=== PATIENT | male | born 1945 | race Caucasian/White ===

== ENCOUNTER → 2016-06-19 | Day surgery (SDC) | payer OTHER, MEDICARE ==
[2016-06-14 15:31] VITALS: Ht 182.9 cm; Wt 68.2 kg
--- NOTE | 2016-06-16 16:21 | HISTORY & PHYSICAL EXAMINATION ---
DATE OF ADMISSION: 06/19/2016 CHIEF COMPLAINT: Decreased vision, right eye. HISTORY OF PRESENT ILLNESS: Amrik has had decreasing vision in his right eye and is scheduled for cataract surgery to help with this condition. PAST MEDICAL HISTORY: Gastroesophageal reflux disease, benign prostatic hypertrophy. PAST SURGICAL HISTORY: Left cataract surgery in 2012. MEDICATIONS: Famotidine 40 mg daily. ALLERGIES: None. SOCIAL HISTORY: No alcohol or tobacco. He is single, retired computer networker. REVIEW OF SYSTEMS: Negative. PHYSICAL EXAMINATION: VITAL SIGNS: Weight was 149, blood pressure 110/76, pulse of 70. GENERAL: He is an alert white male in no apparent distress. HEENT: Normal. CHEST: Clear. CARDIAC: Regular rate without murmur. ABDOMEN: Benign. GENITALIA: Normal. EXTREMITIES: Normal. ASSESSMENT: 1. Acceptable risk for surgery. 2. Gastroesophageal reflux disease is stable. No other significant medical problems. PLAN: 1. Proceed with planned surgery. 2. Continue the above medications. 3. No followup is needed regarding this procedure or any of the above medical problems. DIDIER
[~2016-06-19] VITALS: Ht 182.9 cm; Wt 68.2 kg
[~2016-06-19] MED LIST: 500ML BSS 0.3ML EPI 1:1000PF IRRIG ONE; ACETAMINOPHEN 325 MG TAB PO PRN; AMVISC PLUS 0.8ML SYRINGE INT OCU ONE; BROM0.0911 OP; BSS FLUSH ONE; CIPR0.3S4 OPL; CIPROFLOXACIN; EpINEphrine INJ 1MG/ML AMP 1 MG/ML AMP ONE; FAMO20TA11 PO; LACTATED RINGER'S 1000ML 500 ML IV SCH; LIDOCAINE 3.5% OPH GEL PER APPLICATION CHARGE ONE; LIDOCAINE HCL 1% MPF 2 ML VIAL ONE; LIDOCAINE HCL 2% 2 ML VIAL (20MG/ML) ONE; MIDAZOLAM HCL 1 MG/ML 2ML VIAL ONE; OCUCOAT 1 ML SOLN IO ONE; POVIDONE-IODINE OP SOLN 30 ML BTL ONE; PRED1SUS3 OPL; PROPARACAINE 0.5% OP SOLN PER DROP CHARGE OPR SCH; TOBRAMYCIN/DEXAMETHASONE OPH OINT PER APPLN CHARGE ONE; [UNRECOGNIZED DRUG - OTHER]
[2016-06-19] MEDS: PHENYLEPHRINE HCL 2.5% OP SOLN PER DROP CHARGE OPR SCH ×2 (09:03→09:08)
[2016-06-19] MEDS: TROPICAMIDE 1% OP SOLN PER DROP CHARGE OPR SCH ×2 (09:04→09:09)
[2016-06-19] MEDS: CYCLOPENTOLATE HCL 1% OP SOLN PER DROP CHARGE OPR SCH ×2 (09:05→09:10)
[2016-06-19] MEDS: KETOROLAC 0.5% OP SOLN PER DROP CHARGE OPR SCH ×2 (09:06→09:11)
[2016-06-19] MEDS: GATIFLOXACIN OP SOLN PER DROP CHARGE OPR SCH ×2 (09:07→09:17)
--- NOTE | 2016-06-19 09:10 | History & Physical Bridge - [place] ---
H&P Re-Evaluation Bridge Note: I have examined the patient, reviewed the History & Physical and in the interval since the performance of the History & Physical I have noted the following changes of clinical significance: Diagnosis: Right Cataract Procedure: Right Cataract Removal with Lens Implant No changes noted
--- NOTE | 2016-06-19 09:56 | Discharge Instructions-SurgCtr ---
Discharge Instructions Visit Reason for Visit: Cataract Right Eye Discharge Discharge Diagnosis / Problem: cataract Discharge Goals Goal(s): Improve function Activity Recommendations Activity Limitations: per Instructions/Follow-up section Anesthesia . Post Anesthesia Instructions: If you have had General Anesthesia or IV Sedation: * Do not drive today. * Resume driving when surgeon permits. * Do not make important decisions or sign legal documents today. * Call surgeon for: 1. Temperature elevations greater than 101 degrees F. 2. Uncontrollable pain. 3. Excessive bleeding. 4. Persistent nausea and vomiting. 5. Medication intolerance (nausea, vomiting or rash). * For nausea and vomiting use only clear liquids such as: tea, soda, bouillon until nausea subsides, then gradually increase diet as tolerated. * If you have any concerns or questions, call your surgeon's office. If physician is unavailable and it is an emergency, call 911 or go to the nearest emergency room. . Instructions / Follow-Up Instructions / Follow-Up ACTIVITY RECOMMENDATIONS: * No strenuous lifting, jogging or running for 4 days * No swimming or yard work for 1 week. * Limited bending is permitted, such as putting on shoes. RETURN TO SCHOOL/WORK: No work until seen by physician in office. MEDICATIONS: Resume previous medications unless instructed otherwise by your surgeon. This includes eye drops for glaucoma. Zymaxid/Gatifloxacin (alarcon cap) - one drop every 2 hours until bedtime Nevanac/Ilevro/Prolensa/Ketorolac (ellis cap) - one drop every 4 hours until bedtime Prednisolone (white/pink cap, SHAKE WELL) - one drop every 2 hours until bedtime Starting tomorrow - all 3 drops every 4 hours until seen in the office Optive drops - as needed for discomfort SPECIAL CARE INSTRUCTIONS: * Wear eyeshield when sleeping, for four nights. * You may wear your own glasses or sunglasses while awake. * You may read or watch TV * You may shower and wash your face, but be gentle around the eye and pat dry. * Blurry vision and mild irritation are normal. * Call office if pain is more severe or vision becomes dark at . FOLLOW UP VISIT: Follow-up with Dr Wilson tomorrow. Diet Recommendations Home Diet: resume previous diet Procedures Procedures Performed: Right Cataract Phacoemulsification With Intraocular Lens Implant Pending Studies Studies pending at discharge: no Medical Emergencies . Who to Call and When: Medical Emergencies: If at any time you feel your situation is an emergency, please call 911 immediately. . Non-Emergent Contact Non-Emergency issues call your: Inbound Customer Service Representative . . "Provider Documentation" section prepared by Mark Wilson.
[2016-06-19 09:57] VITALS: TEMP 36.8
--- NOTE | 2016-06-19 09:57 | [facility] Operative Report ---
Operative Report 1. PREOPERATIVE DIAGNOSIS: Cataract of the right eye. 2. POSTOPERATIVE DIAGNOSIS: Same. 3. PROCEDURE: Phacoemulsification with intraocular lens implantation of the right eye. SURGEON: Dr. Mark Wilson. ANESTHESIA: Topical Lidocaine gel, 1% Non- Preserved intracameral Lidocaine, and monitored intravenous sedation. INDICATIONS FOR THE PROCEDURE: The patient is a 70 - year-old male with a history of cataract of the right eye causing significant visual impairment. The details of the proposed procedure were explained to the patient who asked appropriate questions and following discussion of all risks, benefits and alternatives agreed to have the procedure done. 4. OPERATION AND FINDINGS: DESCRIPTION OF PROCEDURE: After informed consent was obtained, the patient was brought to the Operating Room at the [facility]. The patient was placed in a supine position and then the right eye was prepped and draped in the usual sterile fashion for intraocular surgery. A drop of topical Lidocaine gel was placed in the operative eye. A wire lid speculum was then placed in the fornices. A corneal paracentesis was then created temporally. The Non-Preserved Lidocaine was then instilled into the anterior chamber. The anterior chamber was then pressurized with viscoelastic. A 2.0 mm clear corneal incision was then created temporally. A cystotome was inserted into the anterior chamber and used to create a tear in the anterior lens capsule. This capsular tear was then used to create a small flap and the flap was dragged in a counterclockwise direction in order to create a continuous curvilinear capsulorrhexis. Hydrodissection was accomplished with balanced salt solution. Phacoemulsification of the lens nucleus was then performed in a standard [id number] technique. The phaco time was 28 seconds with an average power of 8 %. The remaining cortical material was removed using irrigation aspiration. The capsular bag was then filled with viscoelastic. A [employer] Lomb MI60L +16.0 diopters lens was then loaded into the injector and injected into the capsular bag. The remaining viscoelastic was removed with the irrigation aspiration handpiece. The wound was hydrated and then checked and found to be watertight. The intraocular pressure was checked and found to be adequate. The wire lid speculum was removed and the patient's face was cleaned and dried. TobraDex ointment was placed in the inferior fornix. The patient was discharged to the Recovery Room having tolerated the procedure well. There were no complications. The patient will be seen tomorrow in the office for follow-up. I attest to the content of the Intraoperative Record and any orders documented therein. Any exceptions are noted below.
--- NOTE | 2016-06-19 10:04 | Anesthesia Progress Nt - [facility] ---
Anesthesia Post Op Note Date & Time Jun 19, 2016 at 10:04 Vital Signs Pain Intensity: 0 Vital Signs Past 12 Hours Date Time Temp Pulse Resp B/P Pulse Ox O2 Delivery O2 Flow Rate FiO2 06/19/16 09:57 36.8 61 16 116/76 96 Room Air 06/19/16 08:55 36.5 72 18 113/74 95 Room Air Notes Mental Status: alert / awake / arousable, participated in evaluation Pt Amnestic to Procedure: No Nausea / Vomiting: adequately controlled Pain: adequately controlled Airway Patency, RR, SpO2: stable & adequate BP & HR: stable & adequate Hydration State: stable & adequate Anesthetic Complications: no major complications apparent Pt doing well. Recall as expected and explained.
[2016-06-19 10:18] VITALS: BP 114/76; PULSE 54; O2SAT 97
== END | disposition home or self-care (01) ==
LOC: X.SURG 08:38
PROVIDERS: ATTEND Ophthalmology
DX: H26.9 Unspecified cataract (principal); K21.9 Gastro-esophageal reflux disease without esophagitis; N40.0 Benign prostatic hyperplasia without lower urinary tract symptoms